=== PATIENT | male | born 1960 | race Caucasian/White ===

== ENCOUNTER → 2024-02-08 17:40 | Outpatient (REF) | payer OTHER, SELFPAY | LOC: RCS 17:40 | PROVIDERS: ATTENDING PHYSICIAN Internal Medicine Cardiovascular Disease; FAMILY PHYSICIAN Family Medicine; OTHER PHYSICIAN Family Medicine Sports Medicine | DX: I10 Essential (primary) hypertension (principal); I45.10 Unspecified right bundle-branch block; Z87.39 Personal history of other diseases of the musculoskeletal system and connective tissue; M25.551 Pain in right hip | CPT/HCPCS: 73502; 93306 ==

== ENCOUNTER → 2024-02-29 13:25 | Outpatient (REF) | payer OTHER, SELFPAY | LOC: MRI 3T 13:25 | PROVIDERS: ATTENDING PHYSICIAN Family Medicine Sports Medicine | DX: M24.051 Loose body in right hip (principal) | CPT/HCPCS: 27095; 73525; 73722 ==

== ENCOUNTER → 2024-07-04 06:22 | Day surgery (SDC) | payer OTHER, SELFPAY | LOC: GI 06:22 | PROVIDERS: ATTENDING PHYSICIAN Internal Medicine Gastroenterology | DX: Z12.11 Encounter for screening for malignant neoplasm of colon (principal); D12.0 Benign neoplasm of cecum; D12.2 Benign neoplasm of ascending colon; D12.3 Benign neoplasm of transverse colon; D12.5 Benign neoplasm of sigmoid colon; K57.30 Diverticulosis of large intestine without perforation or abscess without bleeding; K64.8 Other hemorrhoids; K22.2 Esophageal obstruction; K22.89 Other specified disease of esophagus; K44.9 Diaphragmatic hernia without obstruction or gangrene; R13.14 Dysphagia, pharyngoesophageal phase | CPT/HCPCS: 45385; 43249; 43239; 88305 ==